=== PATIENT | female | born 1995 | race Caucasian/White ===

== ENCOUNTER 2019-08-29 21:02 | Emergency (ER) | payer OTHER ==
[2019-08-29 21:11] VITALS: BP 137/81; PULSE 93; RESP 18; TEMP 98.3
[2019-08-29] MEDS ORDERED: IBUPROFEN 600 MG TAB PO STA (21:30)
--- NOTE | 2019-08-29 21:50 | XR ---
EXAMINATION TYPE: XR elbow complete RT DATE OF EXAM: 08/29/2019 CLINICAL HISTORY: Laceration injury with pain. TECHNIQUE: Frontal, lateral and oblique images of the right elbow are obtained. COMPARISON: None FINDINGS: There is no acute fracture/dislocation evident in the right elbow. No abnormal fat pad si gns are seen. The overlying soft tissue appears unremarkable without suspicious radiodense foreign b vy seen. IMPRESSION: There is no acute fracture or dislocation in the right elbow.
--- NOTE | 2019-08-29 22:03 | ED ---
General Adult HPI - General Chief complaint: Fall Stated complaint: [facility] R Arm Injury/Lac Time Seen by Provider: 08/29/19 21:13 Source: patient, RN notes reviewed Mode of arrival: ambulatory Limitations: no limitations - History of Present Illness Initial comments: 23-year-old female presents for right elbow pain. Patient slipped and fell while at work onto her right elbow. Patient states it is painful to extend although she can do this. States she has an abrasion to the olecranon process. Patient denies hitting her head. Denies any other injuries.Patient has no other complaints at this time including shortness of breath, chest pain, abdominal pain, nausea or vomiting, headache, or visual changes. - Related Data Home Medications Medication Instructions Recorded Confirmed No Known Home Medications 10/05/14 08/29/19 Allergies Allergy/AdvReac Type Severity Reaction Status Date / Time No Known Allergies Allergy Verified 08/29/19 21:43 Review of Systems ROS Statement: Those systems with pertinent positive or pertinent negative responses have been documented in the HPI. ROS Other: All systems not noted in ROS Statement are negative. Past Medical History Past Medical History: No Reported History History of Any Multi-Drug Resistant Organisms: None Reported Past Surgical History: No Surgical Hx Reported Past Psychological History: No Psychological Hx Reported Smoking Status: Current every day smoker Past Alcohol Use History: Occasional Past Drug Use History: None Reported General Exam Limitations: no limitations General appearance: alert, in no apparent distress Head exam: Present: atraumatic, normocephalic, normal inspection Eye exam: Present: normal appearance, PERRL, EOMI. Absent: scleral icterus, conjunctival injection, periorbital swelling ENT exam: Present: normal exam, mucous membranes moist Neck exam: Present: normal inspection, full ROM. Absent: tenderness, meningismus, lymphadenopathy Respiratory exam: Present: normal lung sounds bilaterally. Absent: respiratory distress, wheezes, rales, rhonchi, stridor Cardiovascular Exam: Present: regular rate, normal rhythm, normal heart sounds. Absent: systolic murmur, diastolic murmur, rubs, gallop, clicks Extremities exam: Present: full ROM (Patient does have full range of motion but has pain with extension of the right elbow.), tenderness (Generalized tenderness to the right elbow without pinpoint tenderness.), normal capillary refill (Capillary refill less than 2 seconds, radial pulse 2+ in the right upper extremity.). Absent: pedal edema, joint swelling (No significant edema of the r ight elbow.), calf tenderness Course Vital Signs 08/29/19 21:08 Temperature 98.3 F Pulse Rate 93 Respiratory 18 Rate Blood Pressure 137/81 O2 Sat by Pulse 99 Oximetry Medical Decision Making - Medical Decision Making X-ray of the right elbow shows no acute fracture or dislocation. Neurovascular status intact. There are no abnormal fat pad signs. Patient was wrapped with an Juan wrap and discussed rice therapy. I did recommend she follow up with orthopedics if pain continues for repeat x-ray in about 7 days. Recommended she return here for any other worsening symptoms. Disposition Clinical Impression: Elbow pain Disposition: HOME SELF-CARE Condition: Good Instructions (If sedation given, give patient instructions): Swollen Joint (ED) Additional Instructions: Please take Motrin and Tylenol for pain. Rest ice and elevate the right elbow. Use Juan wrap as needed. Follow-up with orthopedics in one to 2 days. He may need repeat x-rays in 7 days if symptoms do not improve. Return here to the emergency department for any worsening symptoms. Is patient prescribed a controlled substance at d/c from ED?: No Referrals: Miguelangel Leiva MD [Primary Care Provider] - 1-2 days Saeed Kenny MD [STAFF PHYSICIAN] - 1-2 days Time of Disposition: 22:02
== END 2019-08-29 22:09 | disposition home or self-care (01) ==
LOC: EC 21:02
DX: M25.521 Pain in right elbow (principal); F17.200 Nicotine dependence, unspecified, uncomplicated; W18.30XA Fall on same level, unspecified, initial encounter; Y92.69 Other specified industrial and construction area as the place of occurrence of the external cause; Y99.0 Civilian activity done for income or pay
CPT/HCPCS: 99283

== ENCOUNTER 2020-07-27 22:41 | Emergency (ER) | payer BC, OTHER ==
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
[2020-07-28 00:55] VITALS: BP 110/79; PULSE 64; RESP 18; TEMP 98.2
== END 2020-07-28 00:45 | disposition home or self-care (01) ==
LOC: EC 22:41
DX: S06.0X9A Concussion with loss of consciousness of unspecified duration, initial encounter (principal); F17.200 Nicotine dependence, unspecified, uncomplicated; V89.0XXA Person injured in unspecified motor-vehicle accident, nontraffic, initial encounter; Y92.410 Unspecified street and highway as the place of occurrence of the external cause
CPT/HCPCS: 70450; 70486; 71045; 72125; 72170